=== PATIENT | female | born 1990 | race Caucasian/White ===

== ENCOUNTER → 2022-02-03 | Outpatient (CLI) | payer MEDICAID, OTHER ==
--- NOTE | 2022-02-03 20:44 | Diagnostic Imaging Report ---
INDICATION: Trauma on 01/16. Continued pain. EXAMINATION: Right forearm 02/03/2022. FINDINGS: Two views of the forearm. Joint effusion noted at the elbow consistent with the nondisplaced fracture of the radial head seen on the separate radiographs of the elbow. Remaining osseous structures intact with the more distal radius and ulna unremarkable. Joint spaces preserved. IMPRESSION: 1. Nondisplaced radial head fracture with secondary joint effusion. Remaining radius and ulna intact. Dictated by: Dictated on workstation # [id number]
--- NOTE | 2022-02-03 21:09 | Diagnostic Imaging Report ---
INDICATION: Fall on 01/16/2022. Continued pain EXAMINATION: Right elbow 02/03/2022. FINDINGS: 3 views of the elbow. There is a joint effusion suggesting an underlying fracture. A vague lucency noted in the radial head suspicious for a nondisplaced fracture. There are no dislocations. IMPRESSION: 1. Likely nondisplaced radial head fracture with a secondary joint effusion. Dictated by: Dictated on workstation # [id number]
== END ==
LOC: RAD FS 18:28
PROVIDERS: ATTEND Nurse Practitioner Family
DX: S52.124A Nondisplaced fracture of head of right radius, initial encounter for closed fracture (principal); W19.XXXA Unspecified fall, initial encounter
CPT/HCPCS: 73080; 73090

== ENCOUNTER 2022-03-29 17:53 | Emergency (ER) | payer MEDICAID ==
[~2022-03-29] VITALS: Ht 160 cm; Wt 54.4 kg
[2022-03-29] MEDS ORDERED: ONDANSETRON 4 MG/2 ML (SDV) Z0FRAN IVP STA (18:07)
[2022-03-29] MEDS ORDERED: NS IV 1000 ML 1,000 ML IV STA (18:07)
[2022-03-29] MEDS ORDERED: KETOROLAC 15 MG/ML VIAL IVP STA (18:07)
--- NOTE | 2022-03-29 18:16 | ED General ---
General Chief Complaint: Cough/Cold/Flu Symptoms Stated Complaint: DIARRHEA; COUGH; N/V Nursing Triage Note: Patient reports she has had fatigue, body aches, vomiting, diarrhea, cough, and a runny nose since last Thursday. Source of Information: Patient History of Present Illness Date Seen by Provider: Mar 29, 2022 Time Seen by Provider: 17:56 Initial Comments 31-year-old female presenting with complaints of general fatigue, body aches, runny nose, cough, vomiting and diarrhea. She states this started around last Thursday but has been worse in the last couple of days. She feels like she is dehydrated. She gets dizzy when she stands up. She did a home COVID test and it was negative. She has not been seen anywhere else to check for influenza. She has had some chills and subjective fever. She denies any pain with urination. She just finished her menstrual cycle last week. Timing/Duration: 1 Week Severity: Moderate Modifying Factors: worse with Eating Associated Systoms: Chest Pain (left sided ribs sore from coughing), Cough, Fever/Chills (subjective), Headaches, Loss of Appetite, Malaise, Nausea/Vomiting, Shortness of Air, Weakness Allergies and Home Medications Allergies Coded Allergies: No Known Drug Allergies (Unverified , 03/29/22) Patient Home Medication List Home Medication List Reviewed: Yes Azithromycin (Azithromycin) 250 Mg Tablet, 250 MG PO DAILY Prescribed by: RENEE LANG on 03/29/221921 Ondansetron (Ondansetron Odt) 4 Mg Tab.rapdis, 4 MG PO Q6H PRN for NAUSEA/VOMITING Prescribed by: ERNEE LANG on 03/29/221921 Potassium Chloride (Potassium Chloride) 20 Meq Tablet.er, 20 MEQ PO BID Prescribed by: RENEE LANG on 03/29/221921 Review of Systems Review of Systems Constitutional: see HPI EENTM: see HPI, nose congestion Respiratory: see HPI Cardiovascular: see HPI Gastrointestinal: see HPI Genitourinary: No dysuria Musculoskeletal: see HPI (generalized body aches) Skin: No rash Psychiatric/Neurological: Headache Past Vrztpuy-Lzfhno-Urshvs Hx Patient Social History Tobacco Use?: Yes Tobacco type used: Cigarettes Smoking Status: Current Everyday Smoker Substance use?: No Alcohol Use?: No Pt feels they are or have been: No Past Medical History Last Menstrual Period: Mar 22, 2022 Physical Exam Vital Signs Vital Signs - First Documented 03/29/22 17:56 Temp 36.6 Pulse 72 Resp 18 B/P (MAP) 130/63 (85) Pulse Ox 98 O2 Delivery Room Air Capillary Refill : Less Than 3 Seconds Height, Weight, BMI Height: '" Weight: lbs. oz. kg; 21.00 BMI Method: General Appearance: No Apparent Distress, WD/WN HEENT: PERRL/EOMI, Pharynx Normal, Pharyngeal Erythema; No Photophobia, No Tonsillar Exudate Neck: Full Range of Motion, Normal Inspection, Non Tender, Supple Respiratory: No Chest Non Tender (tender to palpation left lower ribs without crepitus or step off); Lungs Clear, No Accessory Muscle Use, No Respiratory Distress, Decreased Breath Sounds Cardiovascular: Regular Rate, Rhythm, Normal Peripheral Pulses Gastrointestinal: Normal Bowel Sounds, No Pulsatile Mass, Non Tender, Soft Rectal: Deferred Extremity: Normal Capillary Refill, Normal Inspection, No Pedal Edema Neurologic/Psychiatric: Alert, Oriented x3 Skin: Normal Color, Warm/Dry Progress/Results/Core Measures Suspected Sepsis SIRS Temperature: Pulse: 72 Respiratory Rate: 18 Laboratory Tests 03/29/22 18:18: White Blood Count 14.1H Blood Pressure 130 /63 Mean: 85 Laboratory Tests 03/29/22 18:18: Creatinine 0.62, Platelet Count 338, Total Bilirubin 0.2 Results/Orders Lab Results Laboratory Tests Test 03/29/22 18:00 03/29/22 18:18 Range/Units Influenza Type A (RT-PCR) Not Detected Not Detecte Influenza Type B (RT-PCR) Not Detected Not Detecte SARS-CoV-2 RNA (RT-PCR) Not Detected Not Detecte White Blood Count 14.1 H 4.3-11.0 10^3/uL Red Blood Count 3.35 L 3.80-5.11 10^6/uL Hemoglobin 8.5 L 11.5-16.0 g/dL Hematocrit 26 L 35-52 % Mean Corpuscular Volume 77 L 80-99 fL Mean Corpuscular Hemoglobin 25 25-34 pg Mean Corpuscular Hemoglobin Concent 33 32-36 g/dL Red Cell Distribution Width 16.0 H 10.0-14.5 % Platelet Count 338 130-400 10^3/uL Mean Platelet Volume 10.5 9.0-12.2 fL Immature Granulocyte % (Auto) 0 % Neutrophils (%) (Auto) 83 H 42-75 % Lymphocytes (%) (Auto) 9 L 12-44 % Monocytes (%) (Auto) 6 0-12 % Eosinophils (%) (Auto) 1 0-10 % Basophils (%) (Auto) 0 0-10 % Neutrophils # (Auto) 11.7 H 1.8-7.8 10^3/uL Lymphocytes # (Auto) 1.3 1.0-4.0 10^3/uL Monocytes # (Auto) 0.9 0.0-1.0 10^3/uL Eosinophils # (Auto) 0.1 0.0-0.3 10^3/uL Basophils # (Auto) 0.0 0.0-0.1 10^3/uL Immature Granulocyte # (Auto) 0.1 0.0-0.1 10^3/uL Neutrophils % (Manual) 85 % Lymphocytes % (Manual) 14 % Monocytes % (Manual) 1 % Polychromasia SLIGHT Hypochromasia MODERATE Basophilic Stippling SLIGHT Target Cells SLIGHT Elliptocytes MODERATE Sodium Level 136 135-145 MMOL/L Potassium Level 2.2 *L 3.6-5.0 MMOL/L Chloride Level 95 L 98-107 MMOL/L Carbon Dioxide Level 26 21-32 MMOL/L Anion Gap 15 H 5-14 MMOL/L Blood Urea Nitrogen 11 7-18 MG/DL Creatinine 0.62 0.60-1.30 MG/DL Estimat Glomerular Filtration Rate 121 BUN/Creatinine Ratio 18 Glucose Level 129 H 70-105 MG/DL Calcium Level 9.1 8.5-10.1 MG/DL Corrected Calcium 9.3 8.5-10.1 MG/DL Total Bilirubin 0.2 0.1-1.0 MG/DL Aspartate Amino Transf (AST/SGOT) 13 5-34 U/L Alanine Aminotransferase (ALT/SGPT) 18 0-55 U/L Alkaline Phosphatase 128 40-136 U/L Total Protein 7.4 6.4-8.2 GM/DL Albumin 3.7 3.2-4.5 GM/DL Lipase 17 8-78 U/L My Orders Orders - RENEE LANG MD Covid 19 Inhouse Test (03/29/22 17:57) Influenza A And B By Pcr (03/29/22 17:57) Isolation Central Supply Req (03/29/22 17:57) Ua Culture If Indicated (03/29/22 17:57) Urine Bedside (03/29/22 17:57) Comprehensive Metabolic Panel (03/29/22 17:57) Lipase (03/29/22 17:57) Ed Iv/Invasive Line Start (03/29/22 17:57) Cbc With Automated Diff (03/29/22 17:57) Ns Iv 1000 Ml (Sodium Chloride 0.9%) (03/29/22 18:07) Ondansetron Injection (Zofran Injectio (03/29/22 18:07) Ketorolac Injection (Toradol Injection) (03/29/22 18:07) Manual Differential (03/29/22 18:18) Chest 1 View Ap/Pa Only (03/29/22 18:44) Ekg Tracing (03/29/22 18:47) Monitor-Rhythm Ecg Trace Only (03/29/22 18:47) Potassium Chloride (Tablet) (K Dur Table (03/29/22 18:47) Potassium Cl 10meq/50ml Ivpb (Kcl 10 Meq (03/29/22 18:47) Ceftriaxone 1 Gm Pre-Mix (Rocephin 1 Gm (03/29/22 19:10) Azithromycin Tablet (Zithromax Tablet) (03/29/22 19:10) Methylprednisolone Sod Succ (Solu-Medrol (03/29/22 19:23) Vital Signs/I&O 03/29/22 03/29/22 03/29/22 17:56 18:10 18:18 Temp 36.6 36.6 Pulse 72 Resp 18 B/P (MAP) 130/63 (85) Pulse Ox 98 O2 Delivery Room Air Room Air Capillary Refill : Less Than 3 Seconds Blood Pressure Mean: 85 Progress Note #1: Progress Note Check labs to look at blood count and electrolytes. Urinalysis to look for infection and check her hydration level. Nasal swab to check for influenza and COVID. Give normal saline 1 L IV fluid bolus for hydration, Zofran 4 mg IV for nausea and vomiting, Toradol 15 mg IV for body aches and pain. Progress Note #2: Progress Note WBC count elevated to 14.1 with left shift. Hgb low at 8.5 with low MCV of 77 which helps point to possible iron deficiency anemia. Chemistry with low potassium at 2.2. Covid and Influenza were both negative. Will add on ECG and monitor with telemetry for her low potassium. Give 20 mEq po potassium and 10 mEq IV potassium to help supplement her low potassium. Provided she is not having arrhythmia with her ECG and telemetry will supplement potassium and treat symptomatically for n/v/d. Progress Note #3: Progress Note Patient denies history of anemia but states that she was concerned she might be anemic. She has never been told that she had a low potassium level before. She states she has not been able to eat or drink very well because of the cough and nausea with vomiting and diarrhea. She does report having some Zofran at home. She also states that she has some iron at home that she takes at times. She declined having the IV potassium if she had her young daughter with her and no one to help watch the child. She did take the oral potassium. Treat with Rocephin and Zithromax here for her pneumonia. She did request a steroid to try and help with her symptoms a dose of Solu-Medrol 125 mg IV was ordered. Discharged on Z-Nando as well as potassium. Some Zofran was ordered to try and help keep her stomach settled at home. When asked if she had heavy menstrual cycles she states that they are usually really heavy. This could be a source of her possible iron deficiency anemia. ECG Initial ECG Impression Date: Mar 29, 2022 Initial ECG Impression Time: 19:01 Initial ECG Rate: 87 Initial ECG Rhythm: Normal Sinus Initial ECG Comparisson: No Previous ECG Available Comment Based on independent review and interpretation the EKG shows normal sinus rhythm with a heart rate of [address] elevation. [place] interval 156 ms. QT interval 306 ms and QTc interval 350 ms. She has some global T wave flattening. There is no prior tracing available for comparison. Departure Impression Primary Impression: Hypokalemia Additional Impressions: Influenza-like symptoms Upper respiratory infection Qualified Codes: J06.9 - Acute upper respiratory infection, unspecified Nausea vomiting and diarrhea Anemia Qualified Codes: D64.9 - Anemia, unspecified Pneumonia of left lower lobe due to infectious organism Disposition: HOME, SELF-CARE Condition: Stable Departure-Patient Inst. Decision time for Depature: 19:20 Referrals: DL BUCIO DO (PCP) Primary Care Physician Patient Instructions: Pneumonia, Adult ED, Anemia, Possibly From Low Iron, Adult ED, Nausea and Vomiting, Adult ED, Diarrhea, Adult ED Add. Discharge Instructions: Stay well hydrated and drink plenty of fluids. Follow up with clinic for continued concerns and to recheck potassium level and blood count. The clinic may want you to do other testing for your low blood count. Increase potassium rich foods in your diet. Take the full course of antibiotics for pneumonia All discharge instructions reviewed with patient and/or family. Voiced understanding. Scripts Ondansetron (Ondansetron Odt) 4 Mg Tab.rapdis 4 MG PO Q6H PRN for NAUSEA/VOMITING for 3 Days, #12 TAB 0 Refills Prov: RENEE LANG MD 03/29/22 Potassium Chloride (Potassium Chloride) 20 Meq Tablet.er 20 MEQ PO BID for low potassium for 7 Days, #14 TAB 0 Refills Prov: RENEE LANG MD 03/29/22 Azithromycin (Azithromycin) 250 Mg Tablet 250 MG PO DAILY for pneumonia for 4 Days, #4 TAB 0 Refills Prov: RENEE LANG MD 03/29/22 RENEE LANG MD Mar 29, 2022 18:16
[2022-03-29 18:22] LABS: BASOPHILS % (AUTO) 0 % (0-10); EOSINOPHILS # (AUTO) 0.1 10^3/uL (0.0-0.3); EOSINOPHILS % (AUTO) 1 % (0-10); HEMATOCRIT 26 % (35-52); HEMOGLOBIN 8.5 g/dL (11.5-16.0); LYMPHOCYTES # (AUTO) 1.3 10^3/uL (1.0-4.0); LYMPHOCYTES % (AUTO) 9 % (12-44); MEAN CORPUSCULAR HEMOGLOBIN 25 pg (25-34); MEAN CORPUSCULAR HGB CONC 33 g/dL (32-36); MEAN CORPUSCULAR VOLUME 77 fL (80-99); MEAN PLATELET VOLUME 10.5 fL (9.0-12.2); MONOCYTES # (AUTO) 0.9 10^3/uL (0.0-1.0); MONOCYTES % (AUTO) 6 % (0-12); NEUTROPHILS # (AUTO) 11.7 10^3/uL (1.8-7.8); NEUTROPHILS % (AUTO) 83 % (42-75); PLATELET COUNT 338 10^3/uL (130-400); WHITE BLOOD COUNT 14.1 10^3/uL (4.3-11.0)
[2022-03-29 18:46] LABS: ALBUMIN 3.7 GM/DL (3.2-4.5); BILIRUBIN,TOTAL 0.2 MG/DL (0.1-1.0); CALCIUM 9.1 MG/DL (8.5-10.1); CREATININE SERUM 0.62 MG/DL (0.60-1.30); POTASSIUM 2.2 MMOL/L (3.6-5.0); TOTAL PROTEIN 7.4 GM/DL (6.4-8.2)
[2022-03-29] MEDS ORDERED: POTASSIUM CL 10MEQ/50ML IVPB 50 ML IV STA (18:47)
[2022-03-29] MEDS ORDERED: KCL 20 MEQ TAB (K-DUR) PO STA (18:47)
[2022-03-29] MEDS ORDERED: AZITHROMYCIN 250 MG TAB (ZITHROMAX) PO STA (19:10)
[2022-03-29] MEDS ORDERED: cefTRIAXone 1 GM PRE-MIX 50 ML IV STA (19:10)
[2022-03-29 19:11] LABS: ELLIPT/OVALOCYTES MODERATE; LYMPHOCYTES % (MANUAL) 14 %; MONOCYTES % (MANUAL) 1 %; NEUTROPHILS % (MANUAL) 85 %; TARGET CELLS SLIGHT
[2022-03-29 19:12] LABS: HYPOCHROMASIA MODERATE; POLYCHROMASIA SLIGHT
[2022-03-29] MEDS ORDERED: ONDA4TAB11 PO (19:22)
[2022-03-29] MEDS ORDERED: AZIT250T12 PO (19:22)
[2022-03-29] MEDS ORDERED: POTA-51 PO (19:22)
[2022-03-29] MEDS ORDERED: methylPREDNISolone 125 MG (Solu-MEDROL) VIAL IVP STA (19:23)
[2022-03-29 19:30] VITALS: BP 134/76
--- NOTE | 2022-03-30 07:25 | Diagnostic Imaging Report ---
INDICATION: Cough and dyspnea. TECHNIQUE/COMPARISON: A portable upright AP view of the chest was obtained. There is no previous study for comparison. FINDINGS: Coarse airspace disease is seen in the left lung base with blunting of the left costophrenic sulcus. The right lung appears clear. There is no evidence of pneumothorax. IMPRESSION: Findings are compatible with left basilar infiltrate and probable mild parapneumonic pleural fluid or thickening. Dictated by: Dictated on workstation # [id number]
== END 2022-03-29 19:30 | disposition home or self-care (01) ==
LOC: EDUNIT# 17:53 → ER FS 17:56
DX: E87.6 Hypokalemia (principal); J06.9 Acute upper respiratory infection, unspecified; J16.8 Pneumonia due to other specified infectious organisms; D64.9 Anemia, unspecified; F17.210 Nicotine dependence, cigarettes, uncomplicated; Z28.310 Unvaccinated for COVID-19; Z20.822 Contact with and (suspected) exposure to COVID-19
CPT/HCPCS: 71045; 80053; 83690; 85007; 87636; 93005; 93041